=== PATIENT | female | born 1955 | race Caucasian/White ===

== ENCOUNTER 2018-06-18 12:07 | Emergency (ER) | payer OTHER ==
[~2018-06-18] VITALS: Ht 154.9 cm; Wt 40.8 kg
[~2018-06-18 12:07] MED LIST: AMPYRA10 MG PO
--- NOTE | 2018-06-18 12:40 | NUR ---
PATIENT ASSISTED TO BATHROOM IN WHEELCHAIR, UNSTEADY
[2018-06-18 12:53] LABS: BILIRUBIN,URINE NEGATIVE (NEGATIVE); CLARITY,URINE CLOUDY (CLEAR); COLOR,URINE YELLOW (YELLOW); KETONES,URINE NEGATIVE (NEGATIVE); LEUKOCYTE ESTERASE ,URINE 1+ (NEGATIVE); NITRITE,URINE NEGATIVE (NEGATIVE); PROTEIN,URINE DIPSTICK 2+ (NEGATIVE); URINE UROBILINOGEN 0.2 mg/dL (0.2 - 1)
[2018-06-18 12:58] LABS: WBC,URINE (MAN) >50 /HPF (0-5)
[2018-06-18 12:59] LABS: BACTERIA,URINE MODERATE /HPF; EPITHELIAL CELLS,URINE FEW /LPF; MUCUS,URINE MODERATE (RARE)
[2018-06-18] MEDS ORDERED: PHENAZOPYRIDINE HCL 100 MG TAB PO SCH (13:00)
[2018-06-18] MEDS ORDERED: CEFTRIAXONE SOD 1 GM VIAL IM ONE (13:00)
[2018-06-18] MEDS ORDERED: CEFTRIAXONE SOD 1 GM/NS 50 ML 50 ML IV ONE (14:00)
[2018-06-18] MEDS ORDERED: LIDOCAINE HCL 1% 2 ML AMP ONE (14:00)
== END 2018-06-18 14:48 | disposition home or self-care (01) ==
LOC: ER 12:07
DX: N39.0 Urinary tract infection, site not specified (principal); I10 Essential (primary) hypertension; E78.5 Hyperlipidemia, unspecified; Z88.5 Allergy status to narcotic agent; Z88.2 Allergy status to sulfonamides
CPT/HCPCS: 81001; 87086; 99283; J0696; J2001